=== PATIENT | male | born 1950 | race Caucasian/White ===

== ENCOUNTER 2017-04-15 17:47 | Emergency (ER) | payer MEDICARE ==
--- NOTE | 2017-04-15 17:52 | UC ---
Knee Pain HPI - HPI Summary HPI Summary: 67 YEAR OLD MALE PRESENTS WITH COMPLAINS OF ABRASION ON HIS LEFT KNEE AND ANTERIOR ORTIZ. - History of Current Complaint Stated Complaint: LEFT KNEE PAIN Time Seen by Provider: 04/15/17 17:51 - Allergies/Home Medications Allergies/Adverse Reactions: Allergies Allergy/AdvReac Type Severity Reaction Status Date / Time Clindamycin Allergy Severe Anaphylatic Verified 04/15/17 17:59 Shock Home Medications: Home Medications Gabapentin CAP(*) [Neurontin 300 CAP(*)] 300 mg PO TID 04/15/17 [History Confirmed 04/15/17] PMH/Surg Hx/FS Hx/Imm Hx Previously Healthy: Yes - Surgical History Surgical History: Yes Surgery Procedure, Year, and Place: KNEE SURGERY - Social History Alcohol Use: None Substance Use Type: None Smoking Status (MU): Never Smoked Tobacco - Immunization History Most Recent Tetanus Shot: within the past 6 months. Review of Systems Constitutional: Negative Skin: Other - LEFT KNEE/ORTIZ ABRASION Eyes: Negative ENT: Negative Respiratory: Negative Cardiovascular: Negative Gastrointestinal: Negative Genitourinary: Negative Motor: Negative Neurovascular: Negative Musculoskeletal: Negative Neurological: Negative Psychological: Negative All Other Systems Reviewed And Are Negative: Yes Physical Exam Triage Information Reviewed: Yes Eye Exam: Normal ENT Exam: Normal Dental Exam: Normal Neck exam: Normal Neck: Positive: 1 Respiratory Exam: Normal Cardiovascular Exam: Normal Abdominal Exam: Normal Musculoskeletal Exam: Normal Neurological Exam: Normal Psychological Exam: Normal Skin: Positive: Other - LEFT KNEE/ORTIZ ABRASIONS Knee Pain Course/Dx - Differential Dx/Diagnosis Provider Diagnoses: LEFT KNEE/ORTIZ ABRASIONS. LEFT KNEE/ORTIZ WOUND Discharge - Discharge Plan Condition: Stable Disposition: HOME Prescriptions: DOXYcycline CAP(*) [DOXYcycline 100MG CAP(*)] 100 mg PO BID #20 cap Mupirocin 2% OINT* [Bactroban 2 % Oint*] 1 applic TOPICAL BID #1 tube Patient Education Materials: Knee Pain (ED), Insect Bite or Sting (ED) Referrals: Gilmar Roche [Primary Care Provider] -
[2017-04-15 17:59] VITALS: BP 123/59
== END 2017-04-15 18:20 | disposition home or self-care (01) ==
LOC: UCCORT 17:47
DX: S80.212A Abrasion, left knee, initial encounter (principal); S80.812A Abrasion, left lower leg, initial encounter; X58.XXXA Exposure to other specified factors, initial encounter; Y93.9 Activity, unspecified; Y92.9 Unspecified place or not applicable; Z88.1 Allergy status to other antibiotic agents
CPT/HCPCS: 99212; G0463

== ENCOUNTER 2018-01-09 10:43 | Emergency (ER) | payer MEDICARE ==
[2018-01-09 11:31] VITALS: BP 140/85
--- NOTE | 2018-01-09 13:05 | UC ---
Throat Pain/Nasal Krzysztof HPI - HPI Summary HPI Summary: seen by opthomology and dx with bletheritis--has continued sinus pressure no fevers chills - History of Current Complaint Chief Complaint: UCGeneralIllness Stated Complaint: SINUS/DIZZY Time Seen by Provider: 01/09/18 12:57 Hx Obtained From: Patient Onset/Duration: Gradual Onset, Lasting Days - 5, Still Present Severity: Moderate Cough: None - Allergies/Home Medications Allergies/Adverse Reactions: Allergies Allergy/AdvReac Type Severity Reaction Status Date / Time clindamycin Allergy Severe anaphlactic Verified 01/09/18 11:32 shock Home Medications: Home Medications Gentamicin 0.3% OPHTH.SOLN* 2 drop BOTH EYES QID 01/09/18 [History Confirmed 01/22] PMH/Surg Hx/FS Hx/Imm Hx Previously Healthy: No Cardiovascular History: Hypertension Respiratory History: Asthma GI/ History: Gastroesophageal Reflux - Surgical History Surgical History: Yes Surgery Procedure, Year, and Place: KNEE SURGERY. [facility] - Family History Known Family History: Positive: Cardiac Disease, Hypertension - Social History Occupation: Unemployed, Retired Lives: With Family Alcohol Use: None Substance Use Type: None Smoking Status (MU): Never Smoked Tobacco - Immunization History Most Recent Tetanus Shot: within the past 6 months. Review of Systems Constitutional: Negative Skin: Negative Eyes: Negative ENT: Negative, Sinus Congestion, Sinus Pain/Tenderness Respiratory: Negative Cardiovascular: Negative Gastrointestinal: Negative Genitourinary: Negative Motor: Negative Neurovascular: Negative Musculoskeletal: Negative Neurological: Negative Psychological: Negative Is Patient Immunocompromised?: No All Other Systems Reviewed And Are Negative: Yes Physical Exam Triage Information Reviewed: Yes Appearance: Well-Appearing, No Pain Distress, Obese Vital Signs: Initial Vital Signs Temp 98.7 F 01/09/18 11:25 Pulse 82 01/09/18 11:25 Resp 16 01/09/18 11:25 BP 140/85 01/09/18 11:25 Pulse Ox 96 01/09/18 11:25 Vital Signs Reviewed: Yes Eye Exam: Normal Eyes: Positive: Conjunctiva Clear ENT Exam: Normal ENT: Positive: Normal ENT inspection, Hearing grossly normal, Pharynx normal, Nasal congestion, TMs normal, Sinus tenderness, Uvula midline. Negative: Tonsillar swelling, Tonsillar exudate, Trismus, Muffled voice, Hoarse voice Dental Exam: Normal Neck exam: Normal Neck: Positive: Supple, Nontender, No Lymphadenopathy Respiratory Exam: Normal Respiratory: Positive: Chest non-tender, Lungs clear, Normal breath sounds, No respiratory distress, No accessory muscle use Cardiovascular Exam: Normal Cardiovascular: Positive: RRR, No Murmur, Pulses Normal, Brisk Capillary Refill Musculoskeletal Exam: Normal Musculoskeletal: Positive: Strength Intact, ROM Intact, No Edema Neurological Exam: Normal Neurological: Positive: Alert, Muscle Tone Normal Psychological Exam: Normal Psychological: Positive: Normal Response To Family, Age Appropriate Behavior Skin Exam: Normal Throat Pain/Nasal Course/Dx - Course Assessment/Plan: add flonase, increase fluids plain mucinex and second generation antihistiamine, follow blood pressure with pcp - Differential Dx/Diagnosis Provider Diagnoses: allergic sinusitis Discharge - Sign-Out/Discharge Documenting (check all that apply): Discharge/Admit/Transfer - Discharge Plan Condition: Stable Disposition: HOME Prescriptions: Fluticasone NASAL SPRAY 50MCG* [Flonase NASAL SPRAY 50MCG*] 2 spray BOTH NARES DAILY #1 btl Patient Education Materials: Allergic Rhinitis (ED), Hypertension (ED), How to Use Nasal Newell (ED) Referrals: Gilmar Roche [Primary Care Provider] - 1 Week - Billing Disposition and Condition Condition: STABLE Disposition: HOME
== END 2018-01-09 13:16 | disposition home or self-care (01) ==
LOC: UCCORT 10:43
DX: J30.9 Allergic rhinitis, unspecified (principal); Z88.1 Allergy status to other antibiotic agents
CPT/HCPCS: 99211; G0463

== ENCOUNTER 2018-03-11 15:08 | Emergency (ER) | payer MEDICARE ==
[2018-03-11 15:32] VITALS: BP 127/83
--- NOTE | 2018-03-11 15:53 | ED ---
Upper Extremity Pain - HPI Summary HPI Summary: 68 yr male with the complaint of Left index finger paronychia. Onset of symptoms less than two days ago. Left index finger with redness and some swelling to the paronychial fold. No other complaints. No fever chills, or arm or hand pain. - History of Current Complaint Chief Complaint: SANDRAkin Stated Complaint: L HAND COMPLAINT Time Seen by Provider: 03/11/18 15:40 - Allergies/Home Medications Allergies/Adverse Reactions: Allergies Allergy/AdvReac Type Severity Reaction Status Date / Time clindamycin Allergy Severe anaphlactic Verified 03/11/18 15:32 shock PMH/Surg Hx/FS Hx/Imm Hx Cardiovascular History: Reports: Hx Hypertension Respiratory History: Reports: Hx Chronic Obstructive Pulmonary Disease (COPD) - Surgical History Surgery Procedure, Year, and Place: KNEE SURGERY. [facility] Infectious Disease History: Yes Infectious Disease History: Reports: Hx Shingles Denies: History Other Infectious Disease, Traveled Outside the [place] in Last 30 Days - Family History Known Family History: Positive: Cardiac Disease, Hypertension - Social History Alcohol Use: None Substance Use Type: Reports: None Smoking Status (MU): Never Smoked Tobacco Review of Systems Constitutional: Negative Positive: Other - paronychia left index finger All Other Systems Reviewed And Are Negative: Yes Physical Exam Triage Information Reviewed: Yes Vital Signs On Initial Exam: Initial Vitals Temp Pulse Resp BP Pulse Ox 97.8 F 77 16 127/83 98 03/11/18 15:23 03/11/18 15:23 03/11/18 15:23 03/11/18 15:23 03/11/18 15:23 Vital Signs Reviewed: Yes Appearance: Positive: Well-Appearing, No Pain Distress Head/Face: Positive: Normal Head/Face Inspection Eyes: Positive: EOMI ENT: Positive: Normal ENT inspection Neck: Positive: Nontender Respiratory/Lung Sounds: Positive: Clear to Auscultation, Breath Sounds Present Cardiovascular: Positive: RRR. Negative: Murmur Abdomen Description: Positive: Nontender Musculoskeletal: Positive: Strength/ROM Intact, Other - paronychia left index finger that is early with induration, no real fluctuance. no felon. Neurological: Positive: Sensory/Motor Intact, Alert, Oriented to Person Place, Time, CN Intact II-III Psychiatric: Positive: Normal AVPU Assessment: Alert - Flora Coma Scale Best Eye Response: 4 - Spontaneous Best Motor Response: 6 - Obeys Commands Best Verbal Response: 5 - Oriented Coma Scale Total: 15 Diagnostics - Vital Signs Vital Signs Temp Pulse Resp BP Pulse Ox 03/11/18 15:23 97.8 F 77 16 127/83 98 - Laboratory Lab Statement: Any lab studies that have been ordered have been reviewed, and results considered in the medical decision making process. Course/Dx - Course Course Of Treatment: 68 yr old with paronychia. Will rx with doxycycline, and if this gets worse he will return here or go to ER for I/D - Diagnoses Provider Diagnoses: Paronychia of finger of left hand Discharge - Sign-Out/Discharge Documenting (check all that apply): Discharge/Admit/Transfer - Discharge Plan Condition: Good Disposition: HOME Prescriptions: DOXYcycline CAP(*) [DOXYcycline 100MG CAP(*)] 100 mg PO BID #20 cap Patient Education Materials: Paronychia (ED) Referrals: Sadia MEHTA,Gilmar Sheldon [Primary Care Provider] - 2 Days Additional Instructions: If your finger becomes more swollen, red, painful return here or go to the ER for reevaluation and possible incision and drainage. - Billing Disposition and Condition Condition: GOOD Disposition: Home
== END 2018-03-11 16:00 | disposition home or self-care (01) ==
LOC: UCCORT 15:08
DX: L03.012 Cellulitis of left finger (principal); Z88.1 Allergy status to other antibiotic agents; I10 Essential (primary) hypertension
CPT/HCPCS: 99212; G0463

== ENCOUNTER 2018-08-27 13:36 | Emergency (ER) | payer MEDICARE ==
--- OUTSIDE RECORDS SUMMARY | 2018-08-27 13:45 | XMS REPORT | Continuity of Care Document ---
:1950 External Reference #:[id number] Author Name Bharati Villa NP Address [address] [place] [address] Care Team Providers Name Role Phone Gilmar Mccullough PA Care Team Information Grease Man Unavailable Gilmar Mccullough PA Primary Care Physician Unavailable Payers Type Date Identification Numbers Payment Provider Subscriber Policy Number: [id number] BS [place] Jomar Norman PayID: [id number] [address] [address] [place] [address] Advance Directives Description No Information Available Problems Description No Information Family History Date Family Member(s) Problem(s) Comments Onset: (age 91 Years) Father Unknown : (age 90 Years) Mother due to Natural Causes Social History Type Date Description Comments Sex Unknown Marital Status Occupation concrete mixing truck driver Tobacco Use Start: Unknown Never Smoked Cigarettes ETOH Use Never used alcohol Recreational Drug Use Never Used Drugs Allergies, Adverse Reactions, Alerts Date Description Reaction Status Severity Comments 01/28/2008 Clindamycin HCL Active Medications Medication Date Status Form Strength Qnty SIG Indications Ordering Provider Zaleplon 04/05/ Active Capsules 5mg 1caps 1 by mouth at [place], 2017 bedtime January Gadiel take if 1st M.D. does not work Zaleplon 03/29/ Active Capsules 5mg 1caps 1 by mouth at [facility]2017 bedtime Nancy Rmaesh Valsartan / Active Tablets 80mg 1 by mouth Unknown 0000 every day Escitalopram 0000/ Active Tablets 10mg 1 a day Unknown Oxalate 0000 Allopurinol 0000/ Active Tablets 300mg 1 by mouth Unknown 0000 every day Gabapentin 00/ Active Capsules 300mg 1 by mouth Unknown 0000 three times a day Colchicine / Active Capsules 0.6mg 2 tablets Unknown 0000 intially, then one tabletone hour later Elizabeth Allergy / Active Tablets 60mg 1 tab daily Unknown 0000 d/c the 30 mg Calcium / Active Tablets 500mg 1 twice a day Unknown 0000 Tylenol PM / Active Tablets 500-25mg 1-2 tab by Unknown Extra Strength 0000 mouth every night as needed Voltaren / Active Gel 1% 2 gm apply to Unknown 0000 shoulder four times a day as needed for pain. Utibron / Active Capsules 27.5-15.6 Unknown Neohaler 0000 mcg Proair HFA / Active Aerosol 108(90Bas 2puffs four Unknown 0000 e) times a day mcg/Act as needed for sob Diclofenac / Active Gel 1% please cancel Unknown Sodium 0000 this prescription thank you Simvastatin / Active Tablets 20mg 1 by mouth Unknown 0000 every day Anoro Ellipta / Active Aerosol 62.5-25mc take one puff Unknown 0000 g/Inh once daily. Zaleplon 01/04/ Hx Capsules 10mg 1caps 1 by mouth [place], 2017 - night of [facility], 03/24/ sleep study M.D. 2017 Zaleplon 11/30/ Hx Capsules 5mg 1caps 1 by mouth at [facility], 2017 - bedtime [facility], 01/04/ M.DJoaquín 2018 See Meds On HX / Hx Unknown Sheet - 2017 Vitamin B-12 / Hx Tablets 1000mcg daily Unknown - 2017 Valsartan / Hx Tablets 80mg 1 by mouth Unknown 0000 - every day 2017 Escitalopram / Hx Tablets 10mg 1 by mouth Unknown Oxalate 0000 - every day 2017 Allopurinol / Hx Tablets 300mg 1 by mouth Unknown 0000 - every day 2017 Gabapentin 00/ Hx Capsules 300mg 1 by mouth Unknown 0000 - three times a 2018 Colchicine / Hx Capsules 0.6mg prn Unknown 0000 - 2017 Famotidine // Hx Tablets 20mg 1 by mouth Unknown 0000 - bid 2017 Multivitamins 00/00/ Hx Capsules 1 a day Unknown 0000 - 2017 Elizabeth-D 24 / Hx Tablets 180-240mg 1 by mouth Unknown Hour Allergy & 0000 - ER 24HR every day Congestion 2017 Calcium-Vitamin / Hx Tablets 600-200mg 1 by mouth Unknown D 0000 - -Unit every day 2017 Gas-X / Hx Chewtabs 80mg as needed Unknown 0000 - 2017 Tylenol / Hx Capsules 325mg 2 tab every 6 Unknown 0000 - hours as needed 2018 Voltaren / Hx Gel 1% 2-4 grams to Unknown 0000 - affected 03/24/ joint three 2018 times a day as needed Immunizations Description No Information Available Vital Signs Date Vital Result Comment 08/17/2018 10:56am Weight 281.00 lb Height 70 inches 5'10" BMI (Body Mass Index) 40.3 kg/m2 BP Systolic 130 mmHg BP Diastolic 80 mmHg Heart Rate 64 /min O2 % BldC Oximetry 94 % Body Temperature 97.6 F Boston Score 4 Pain Level 0 06/02/2018 9:22am Weight 289.00 lb Height 70 inches 5'10" BMI (Body Mass Index) 41.5 kg/m2 BP Systolic 117 mmHg BP Diastolic 78 mmHg Heart Rate 72 /min O2 % BldC Oximetry 97 % Body Temperature 96.7 F Boston Score 4 Pain Level 0 03/25/2018 2:47pm Weight 303.00 lb Height 70 inches 5'10" BMI (Body Mass Index) 43.5 kg/m2 BP Systolic 135 mmHg BP Diastolic 81 mmHg Heart Rate 67 /min O2 % BldC Oximetry 96 % Body Temperature 96.3 F Boston Score 6 Pain Level 0 11/12/2017 4:00pm Weight 344.12 lb Height 70 inches 5'10" BMI (Body Mass Index) 49.4 kg/m2 BP Systolic 109 mmHg BP Diastolic 71 mmHg Heart Rate 110 /min O2 % BldC Oximetry 96 % 2L 02 via nasal canula Body Temperature 96.8 F Boston Score 9 Pain Level 0 2010 1:25pm Weight 364.00 lb Height 70 inches 5'10" BMI (Body Mass Index) 52.2 kg/m2 01/28/2008 3:09pm Weight 364.25 lb BP Systolic 157 mmHg BP Diastolic 94 mmHg Heart Rate 78 /min O2 % BldC Oximetry 95 % Results Description No Information Available Procedures Date Code Description Status 04/09/2018 32518 Sleep Stage 4 Or More Cpap Titra Completed 01/10/2018 29873 Sleep Stage 4 Or More Cpap Titra Completed 03/01/2010 97213 Sleep Stage 4 Or More Cpap Titra Completed 01/11/2010 26235 Sleep Staging 4Or More Para Completed 01/28/2008 08239 Fiberoptic Laryngoscopy,Diag. Completed Encounters Type Date Location Provider Dx Diagnosis Office Visit 08/17/2018 Main Office Zulay [id number] Obstructive sleep 11:00a [employer] apnea (adult) (pediatric) Office Visit 06/02/2018 Main Office Zulay [id number] Obstructive sleep 9:30a [employer] RE[employer]UITER apnea (adult) (pediatric) Office Visit 03/25/2018 Main Office Zulay [id number] Obstructive sleep 2:45p [employer] RE[employer] apnea (adult) (pediatric) Z71.82 Exercise counseling Z71.3 Dietary counseling and surveillance Office Visit 11/12/2017 3:30p Main Office Bharati Ron G47.33 Obstructive sleep STACIA Villa apnea (adult) (pediatric) R09.02 Hypoxemia R06.83 Snoring E66.01 Morbid (severe) obesity due to excess calories Office Visit 2010 1:15p Main Office Gadiel Trujillo, 327.23 Obstructive Sleep M.D. Apnea Adult & Pediatric 470 Deviated Nasal Septum 780.54 Hypersomnia Unspecified Office Visit 01/28/2008 3:00p Main Office Gadiel Trujillo, 327.23 Obstructive Sleep M.D. Apnea Adult & Pediatric 470 Deviated Nasal Septum 780.54 Hypersomnia Unspecified Plan of Treatment 11/12/2017 - Bharati Villa [id number] Obstructive sleep apnea (adult) ( pediatric)R09.02 FjpqxycouN42.83 YclstwmT00.01 Morbid (severe) obesity due to excess caloriesNew Orders:PSG - Sleep Study, Ordered: 11/12/17
--- OUTSIDE RECORDS SUMMARY | 2018-08-27 13:45 | XMS REPORT | Continuity of Care Document ---
:1950 External Reference #:[id number] Author Name Emily Lackey Care Team Providers Name Role Phone Gilmar Mccullough PA Care Team Information Help Desk Administrator Unavailable Gilmar Mccullough PA Primary Care Physician Unavailable Payers Type Date Identification Numbers Payment Provider Subscriber Policy Number: [id number] BS MARGARITAY Jomar Norman PayID: [id number] [address] [address] [place] [id number] Advance Directives Description No Information Available Problems Description No Information Family History Date Family Member(s) Problem(s) Comments Onset: (age 91 Years) Father Unknown : (age 90 Years) Mother due to Natural Causes Social History Type Date Description Comments Sex Unknown Marital Status Occupation concrete mixer truck driver Tobacco Use Start: Unknown Never Smoked Cigarettes ETOH Use Never used alcohol Recreational Drug Use Never Used Drugs Allergies, Adverse Reactions, Alerts Date Description Reaction Status Severity Comments 01/28/2008 Clindamycin HCL Active Medications Medication Date Status Form Strength Qnty SIG Indications Ordering Provider Zaleplon 04/05/ Active Capsules 5mg 1caps 1 by mouth at [place], 2017 bedtime January analilia Ramesh if 1st M.D. does not work Zaleplon 03/29/ Active Capsules 5mg 1caps 1 by mouth at [place]2017 bedtime Nancy Ramesh Valsartan / Active Tablets 80mg 1 by mouth Unknown 0000 every day Escitalopram / Active Tablets 10mg 1 a day Unknown Oxalate 0000 Allopurinol / Active Tablets 300mg 1 by mouth Unknown 0000 every day Gabapentin / Active Capsules 300mg 1 by mouth Unknown 0000 three times a day Colchicine / Active Capsules 0.6mg 2 tablets Unknown 0000 intially, then one tabletone hour later Elizabeth Allergy / Active Tablets 60mg 1 tab daily Unknown 0000 d/c the 30 mg Calcium 00/00/ Active Tablets 500mg 1 twice a day [...] by mouth [place], 2017 - night of [facility], 03/24/ sleep study M.D. 2017 Zaleplon 11/30/ Hx Capsules 5mg 1caps 1 by mouth at [facility], 2017 - bedtime [facility], 01/04/ M.D. 2018 See Meds On HX / Hx Unknown Sheet 0000 - 2017 Vitamin B-12 / Hx Tablets 1000mcg daily Unknown 0000 - 2017 Valsartan / Hx Tablets 80mg 1 by mouth Unknown 0000 - every day 2017 Escitalopram / Hx Tablets 10mg 1 by mouth Unknown Oxalate 0000 - every day 2017 Allopurinol // Hx Tablets 300mg 1 by mouth Unknown 0000 - every day 2017 Gabapentin 00/ Hx Capsules 300mg 1 by mouth Unknown 0000 - three times a 2018 Colchicine / Hx Capsules 0.6mg prn Unknown 0000 - 2017 Famotidine / Hx Tablets 20mg 1 by mouth Unknown [...] every 6 Unknown 0000 - hours as 2018 Voltaren / Hx Gel 1% 2-4 grams to Unknown 0000 - affected joint three 2018 times a day as needed Immunizations Description No Information Available Vital Signs Date Vital Result Comment 08/17/2018 10:56am Weight 281.00 lb Height 70 inches 5'10" BMI (Body Mass Index) 40.3 kg/m2 BP Systolic 130 mmHg BP Diastolic 80 mmHg Heart Rate 64 /min O2 % BldC Oximetry 94 % Body Temperature 97.6 F Malone Score 4 Pain Level 0 06/02/2018 9:22am Weight 289.00 lb Height 70 inches 5'10" BMI (Body Mass Index) 41.5 kg/m2 BP Systolic 117 mmHg BP Diastolic 78 mmHg Heart Rate 72 /min O2 % BldC Oximetry 97 % Body Temperature 96.7 F Malone Score 4 Pain Level 0 03/25/2018 2:47pm Weight 303.00 lb Height 70 inches 5'10" BMI (Body Mass Index) 43.5 kg/m2 BP Systolic 135 mmHg BP Diastolic 81 mmHg Heart Rate 67 /min O2 % BldC Oximetry 96 % Body Temperature 96.3 F Malone Score 6 Pain Level 0 11/12/2017 4:00pm Weight 344.12 lb Height 70 inches 5'10" BMI (Body Mass Index) 49.4 kg/m2 BP Systolic 109 mmHg BP Diastolic 71 mmHg Heart Rate 110 /min O2 % BldC Oximetry 96 % 2L 02 via nasal canula Body Temperature 96.8 F Malone Score 9 Pain Level 0 2010 1:25pm Weight 364.00 lb Height 70 inches 5'10" BMI (Body Mass Index) 52.2 kg/m2 01/28/2008 3:09pm Weight 364.25 lb BP Systolic 157 mmHg BP Diastolic 94 mmHg Heart Rate 78 /min O2 % BldC Oximetry 95 % Results Description No Information Available Procedures Date Code Description Status 04/09/2018 37435 Sleep Stage 4 Or More Cpap Titra Completed 01/10/2018 54520 Sleep Stage 4 Or More Cpap Titra Completed 03/01/2010 04634 Sleep Stage 4 Or More Cpap Titra Completed 01/11/2010 67029 Sleep Staging 4Or More Para Completed 01/28/2008 87640 Fiberoptic Laryngoscopy,Diag. Completed Encounters Type Date Location Provider Dx Diagnosis Office Visit 06/02/2018 Main Office Bharati Villa [id number] Obstructive sleep 9:30a [employer]IST apnea (adult) (pediatric) Office Visit 03/25/2018 Main Office Bharati Villa G47.33 Obstructive sleep 2:45p [employer] INTER[employer]IST apnea (adult) (pediatric) Z71.82 Exercise counseling Z71.3 [...] [id number] Obstructive sleep apnea (adult) ( pediatric)R09.02 GwemeoxuvU92.83 XzgawhyL50.01 Morbid (severe) obesity due to excess caloriesNew Orders:PSG - Sleep Study, Ordered: 11/12/17
[2018-08-27 14:30] VITALS: BP 132/81
[2018-08-27] MEDS ORDERED: Fluorescein Sodium TOPICAL* 1 MG TEST STRIP OPHTHALMIC ONE (14:41)
--- NOTE | 2018-08-27 14:56 | UC ---
Throat Pain/Nasal Krzysztof HPI - HPI Summary HPI Summary: The patient is a 68-year-old male that presents here with left sided sinus pain and pressure 2 days. He started taking Elizabeth-D. He denies any significant nasal congestion or postnasal drip. He has no cough. He states he has had shingles twice in the past. - History of Current Complaint Chief Complaint: UCGeneralIllness Stated Complaint: SINUS/LEFT EYE COMPLAINT Time Seen by Provider: 08/27/18 14:34 Hx Obtained From: Patient Onset/Duration: Gradual Onset, Lasting Days Severity: Mild Pain Intensity: 3 Pain Scale Used: 0-10 Numeric Cough: None Associated Signs & Symptoms: Positive: Sinus Discomfort Related History: Seasonal Allergies - Epiglottits Risk Factors Epiglottis Risk Factors: Negative - Allergies/Home Medications Allergies/Adverse Reactions: Allergies Allergy/AdvReac Type Severity Reaction Status Date / Time clindamycin Allergy Severe anaphlactic Verified 08/27/18 14:29 shock Home Medications: Home Medications Blood Pressure Med 08/27/18 [History] PMH/Surg Hx/FS Hx/Imm Hx Previously Healthy: Yes Endocrine History: Dyslipidemia Cardiovascular History: Hypertension - Surgical History Surgical History: Yes Surgery Procedure, Year, and Place: KNEE SURGERY. [facility]. Gastric bypass - Family History Known Family History: Positive: Cardiac Disease, Hypertension - Social History Alcohol Use: None Substance Use Type: None Smoking Status (MU): Never Smoked Tobacco - Immunization History Most Recent Tetanus Shot: within the past 6 months. Review of Systems All Other Systems Reviewed And Are Negative: Yes Constitutional: Positive: Negative Skin: Positive: Negative Eyes: Positive: Negative ENT: Positive: Sinus Pain/Tenderness Respiratory: Positive: Negative Cardiovascular: Positive: Negative Gastrointestinal: Positive: Negative Genitourinary: Positive: Negative Motor: Positive: Negative Neurovascular: Positive: Negative Musculoskeletal: Positive: Negative Neurological: Positive: Negative Psychological: Positive: Negative Physical Exam Triage Information Reviewed: Yes Appearance: Well-Appearing, No Pain Distress, Well-Nourished Vital Signs: Initial Vital Signs Temp 97.0 F 08/27/18 14:26 Pulse 71 08/27/18 14:26 Resp 18 08/27/18 14:26 BP 132/81 08/27/18 14:26 Pulse Ox 99 08/27/18 14:26 Vital Signs Reviewed: Yes Eyes: Positive: Conjunctiva Clear, Other: - left eye- flourescein staining negative ENT: Positive: Hearing grossly normal, Nasal congestion, TMs normal. Negative: Nasal drainage, Tonsillar swelling, Tonsillar exudate, Trismus, Muffled voice, Hoarse voice, Dental tenderness, Sinus tenderness - mild left max Respiratory: Positive: Lungs clear, Normal breath sounds, No respiratory distress, No accessory muscle use Cardiovascular: Positive: RRR, No Murmur Musculoskeletal: Positive: Other: - limited ROM both knees Neurological: Positive: Alert Psychological Exam: Normal Skin Exam: Normal Throat Pain/Nasal Course/Dx - Differential Dx/Diagnosis Provider Diagnosis: Sinus congestion Discharge - Sign-Out/Discharge Documenting (check all that apply): Patient Departure All imaging exams completed and their final reports reviewed: No Studies - Discharge Plan Condition: Stable Disposition: HOME Prescriptions: Fluticasone NASAL SPRAY 50MCG* [Flonase NASAL SPRAY 50MCG*] 2 spray BOTH NARES BID #1 btl Patient Education Materials: Rhinosinusitis (ED) Referrals: Sadia MEHTA,Gilmar Sheldon [Primary Care Provider] - 5 Days (if not better) Additional Instructions: recheck CARLOZ if you develop a rash in the region you are experiencing the pain - Billing Disposition and Condition Condition: STABLE Disposition: Home
== END 2018-08-27 15:10 | disposition home or self-care (01) ==
LOC: UCCORT 13:36
DX: J34.89 Other specified disorders of nose and nasal sinuses (principal); Z88.1 Allergy status to other antibiotic agents; I10 Essential (primary) hypertension
CPT/HCPCS: 99212; A9270-GY; G0463

== ENCOUNTER 2018-08-30 13:33 | Emergency (ER) | payer MEDICARE ==
[2018-08-30 15:10] VITALS: BP 119/80
--- NOTE | 2018-08-30 15:31 | UC ---
Ear Complaint HPI - HPI Summary HPI Summary: Patient seen here 3 days ago with sinus congestion and treated with nasal steroid. States those symptoms are improving but comes in today complaining of left ear pain that started yesterday. No cough, fever, nausea/vomiting. - History of Current Complaint Chief Complaint: UCEar Stated Complaint: LEFT EAR COMPLAINT Time Seen by Provider: 08/30/18 15:19 Hx Obtained From: Patient Onset/Duration: Gradual Onset, Lasting Days Severity Initially: Moderate Severity Currently: Moderate Pain Intensity: 6 Pain Scale Used: 0-10 Numeric Aggravating Factors: Nothing Alleviating Factors: Nothing Associated Signs/Symptoms: Positive: URI Symptoms. Negative: Discharge, Hearing Loss - Allergies/Home Medications Allergies/Adverse Reactions: Allergies Allergy/AdvReac Type Severity Reaction Status Date / Time clindamycin Allergy Severe anaphlactic Verified 08/30/18 15:03 shock PMH/Surg Hx/FS Hx/Imm Hx Endocrine History: Dyslipidemia Cardiovascular History: Hypertension Respiratory History: COPD - Surgical History Surgical History: Yes Surgery Procedure, Year, and Place: KNEE SURGERY. [facility]. Gastric bypass - Family History Known Family History: Positive: Cardiac Disease, Hypertension - Social History Alcohol Use: None Substance Use Type: None Smoking Status (MU): Never Smoked Tobacco - Immunization History Most Recent Tetanus Shot: within the past 6 months. Review of Systems All Other Systems Reviewed And Are Negative: Yes Constitutional: Positive: Negative ENT: Positive: Ear Ache, Sinus Congestion Respiratory: Positive: Negative Cardiovascular: Positive: Negative Gastrointestinal: Positive: Negative Neurological: Positive: Negative Physical Exam Triage Information Reviewed: Yes Appearance: Well-Appearing, No Pain Distress, Well-Nourished Vital Signs: Initial Vital Signs Temp 97.5 F 08/30/18 15:04 Pulse 69 08/30/18 15:04 Resp 18 08/30/18 15:04 BP 119/80 08/30/18 15:04 Pulse Ox 96 08/30/18 15:04 Vital Signs Reviewed: Yes Eyes: Positive: Conjunctiva Clear ENT: Positive: Hearing grossly normal, Pharynx normal, TMs normal - RIGHT EAC OCCLUDED WITH CERUMEN. AFTER SUCCESSFUL IRRIGATION BY RN TM SEEN TO BE NORMAL Neck: Positive: Supple, Nontender, No Lymphadenopathy Respiratory Exam: Normal Cardiovascular Exam: Normal Abdomen Description: Positive: Soft Musculoskeletal: Positive: No Edema Neurological: Positive: Alert Psychological: Positive: Age Appropriate Behavior Skin: Negative: Rashes Ear Complaint Course/Dx - Course Course Of Treatment: NO SIGN OF LEFT EAR INFECTION ON EXAM TODAY. RIGHT EAR CERUMEN IMPACTION SUCCESSFULLY IRRIGATED BY RN. PATIENT STATES HIS SINUS CONGESTION IS IMPROVING WITH THE USE OF THE NASAL STEROID. ADVISED CONSERVATIVE MANAGEMENT. TYLENOL FOR DISCOMFORT. REST, HYDRATION. HIS SYMPTOMS SHOULD CONTINUE TO IMPROVE OVER THE NEXT FEW DAYS. FOLLOW-UP WITH PCP IF NOT DOING WELL. - Differential Dx/Diagnosis Provider Diagnosis: Ear pain, left, Impacted cerumen of right ear Discharge - Sign-Out/Discharge Documenting (check all that apply): Patient Departure All imaging exams completed and their final reports reviewed: No Studies - Discharge Plan Condition: Stable Disposition: HOME Patient Education Materials: Earache (ED), Cerumen Impaction (ED) Referrals: Gilmar Roche [Primary Care Provider] - If Needed Additional Instructions: NO EVIDENCE OF EAR INFECTION ON EXAM TODAY. WE DID CLEAN OUT YOUR RIGHT EAR WHICH WAS OBSTRUCTED WITH CERUMEN. TAKE TYLENOL NEEDED FOR YOUR DISCOMFORT. STAY WELL HYDRATED. YOUR SYMPTOMS SHOULD IMPROVE OVER THE NEXT FEW DAYS. SEEK FOLLOW-UP IF YOU HAVE WORSENING PAIN, FEVER, DRAINAGE FROM THE EAR OR ANY OTHER CONCERNING SYMPTOMS. - Billing Disposition and Condition Condition: STABLE Disposition: Home
== END 2018-08-30 16:13 | disposition home or self-care (01) ==
LOC: UCCORT 13:33
DX: H92.02 Otalgia, left ear (principal); H61.21 Impacted cerumen, right ear; Z88.1 Allergy status to other antibiotic agents; I10 Essential (primary) hypertension
CPT/HCPCS: 99212; G0463

== ENCOUNTER 2019-08-29 10:06 | Emergency (ER) | payer MEDICARE, OTHER ==
[2019-08-29 10:36] VITALS: BP 113/64
--- NOTE | 2019-08-29 10:56 | ED ---
Upper Extremity Pain - HPI Summary HPI Summary: 69 yr old male with the complaint of right shoulder pain. Onset of pain on . 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 He was seen at [facility], and evaluated. He was given a work excuse for a couple of days. The patient has pain that is worse with lifting the right arm over his head. He also sustained and abrasion to the right forearm. He states the dressing was last changed yesterday. His last tetanus shot was in 2018. - History of Current Complaint Chief Complaint: UCUpperExtremity Stated Complaint: WC-RIGHT SHOULDER INJURY Time Seen by Provider: 08/29/19 10:28 - Allergies/Home Medications Allergies/Adverse Reactions: Allergies Allergy/AdvReac Type Severity Reaction Status Date / Time clindamycin Allergy Severe anaphlactic Verified 08/29/19 10:36 shock Home Medications: Home Medications Calcium Carb, Citrate/Vit D3 [Calcium+D3 Gradual Releas] 1 tab PO DAILY [History Confirmed 08/29/19] Famotidine [Pepcid] 20 mg PO BID 08/29/19 [History Confirmed 08/29/19] Fexofenadine/Pseudoephedrine [Elizabeth-D 24 Hour Tablet] 1 each PO DAILY [History Confirmed 08/29/19] Losartan Potassium 25 mg PO DAILY 08/29/19 [History Confirmed 08/29/19] Multivitamin [Multivitamins] 1 cap PO DAILY 08/29/19 [History Confirmed 08/29/19 ] PMH/Surg Hx/FS Hx/Imm Hx Cardiovascular History: Reports: Hx Hypertension Respiratory History: Reports: Hx Chronic Obstructive Pulmonary Disease (COPD) - Surgical History Surgery Procedure, Year, and Place: KNEE SURGERY. [facility]. Gastric bypass Infectious Disease History: No Infectious Disease History: Reports: Hx Shingles Denies: History Other Infectious Disease, Traveled Outside the [place] in Last 30 Days - Family History Known Family History: Positive: Cardiac Disease, Hypertension - Social History Alcohol Use: None Substance Use Type: Reports: None Smoking Status (MU): Never Smoked Tobacco Review of Systems Constitutional: Negative Positive: Other - right shoulder pain Positive: Other - abrasion right forearm. All Other Systems Reviewed And Are Negative: Yes Physical Exam Triage Information Reviewed: Yes Vital Signs On Initial Exam: Initial Vitals Temp Pulse Resp BP Pulse Ox 97.2 F 65 16 113/64 98 08/29/19 10:29 08/29/19 10:29 08/29/19 10:29 08/29/19 10:29 08/29/19 10:29 Vital Signs Reviewed: Yes Appearance: Positive: Well-Appearing, No Pain Distress Skin: Positive: Other - abrasion right forearm. Eyes: Positive: EOMI ENT: Positive: Normal ENT inspection Neck: Positive: Supple Respiratory/Lung Sounds: Positive: Clear to Auscultation, Breath Sounds Present Cardiovascular: Positive: RRR, Pulses are Symmetrical in both Upper and Lower Extremities Abdomen Description: Negative: Distended Musculoskeletal: Positive: Other - right shoulder tender over the right proximal humerus. NO deformity, no bruise no swelling. Neurological: Positive: Sensory/Motor Intact, Alert, Oriented to Person Place, Time, CN Intact II-III Psychiatric: Positive: Normal Diagnostics - Vital Signs Vital Signs Temp Pulse Resp BP Pulse Ox 08/29/19 10:29 97.2 F 65 16 113/64 98 - Laboratory Lab Statement: Any lab studies that have been ordered have been reviewed, and results considered in the medical decision making process. - Radiology right shoulder Radiology Interpretation Completed By: Radiologist - right ac joint arthritis Course/Dx - Course Course Of Treatment: 69 yr old with contusion to the shoulder and ac joint arthritis. He has an appointment with Ortho this week. Will give a note for work until Thursday per his request. - Diagnoses Provider Diagnoses: Contusion of right shoulder Discharge ED - Sign-Out/Discharge Documenting (check all that apply): Patient Departure All imaging exams completed and their final reports reviewed: No Studies - Discharge Plan Condition: Good Disposition: HOME Patient Education Materials: Contusion in Adults (ED), Abrasion (ED) Referrals: Gilmar Mccullough PA [Primary Care Provider] - 2 Days - Billing Disposition and Condition Condition: GOOD Disposition: Home
== END 2019-08-29 11:50 | disposition home or self-care (01) ==
LOC: UCCORT 10:06
DX: S40.011A Contusion of right shoulder, initial encounter (principal); S50.811A Abrasion of right forearm, initial encounter; I10 Essential (primary) hypertension; J44.9 Chronic obstructive pulmonary disease, unspecified; Z88.1 Allergy status to other antibiotic agents; W18.39XA Other fall on same level, initial encounter; Y92.9 Unspecified place or not applicable; Y99.0 Civilian activity done for income or pay; Z79.899 Other long term (current) drug therapy
CPT/HCPCS: 99211; G0463

== ENCOUNTER 2023-11-27 06:44 | Observation (INO) ==
[2023-11-27] MEDS ORDERED: Tranexamic Acid 1 GM/100ML BAG 2,000 MG/200 ML BAG IV ONE (07:20)
[2023-11-27] MEDS ORDERED: ceFAZolin *3* GM in NS PREMIX 3 GM/100 ML BAG IV ONE (07:20)
[2023-11-27] MEDS ORDERED: Bupivacaine 0.5% 50 ML MDV VIAL ONE (07:28)
[2023-11-27 07:29] LABS: Rapid COVID-19 Molecular Undetected (Undetected)
[2023-11-27] MEDS ORDERED: ROPIVACAINE 5 MG/ML 30 ML BTL (0.5%) ONE ×2 (07:41→08:12)
[2023-11-27] MEDS ORDERED: fentaNYL 100 mcg/2 ml 50 MCG/ML VIAL ONE (08:09)
[2023-11-27] MEDS ORDERED: Midazolam 2 mg/2 ml VIAL 1 mg/ml 2 ml VIAL (2 mg) ONE ×2 (08:09→09:00)
[2023-11-27] MEDS ORDERED: Lidocaine 2% PF 5 ML VIAL ONE (09:13)
[2023-11-27] MEDS ORDERED: Glycopyrrolate IV 0.2 MG/ML 1 ML VIAL ONE (09:28)
[2023-11-27] MEDS ORDERED: KETAMINE HCL 10 MG/ML 20 ml VIAL (200 MG) ONE (09:28)
[2023-11-27] MEDS ORDERED: HYDROmorphone 1 MG/1 ML SYRINGE IV PRN (09:42)
[2023-11-27] MEDS ORDERED: Naloxone 0.4 mg VIAL 0.4 mg/ml 1 ml VIAL IV PRN (09:42)
[2023-11-27] MEDS ORDERED: Magnesium Hydroxide LIQ 30 ML UDC PO PRN (10:31)
[2023-11-27] MEDS ORDERED: Lactulose 30 ml UDC PO PRN (10:31)
[2023-11-27] MEDS ORDERED: Phenylephrine IV 10 MG/ML 1 ml VIAL ONE (10:57)
[2023-11-27] MEDS ORDERED: Propofol 10 MG/ML 20 ML BTL ONE (10:59)
[2023-11-27] MEDS ORDERED: Bupivacaine-MPF SPINAL 7.5 MG/ML - 2ML AMP ONE (12:31)
[2023-11-27] MEDS: Buffered Lidocaine 1% SYRIN 1 ml INTRADERM ONE (14:39)
[2023-11-27] MEDS: Lactated Ringers 1000 ml BAG 1,000 ML IV SCH ×2 (14:49→14:53)
[2023-11-27] MEDS: ceFAZolin 1 GM ADVAN 1 GM in NS 0.9% 50 ML 50 ML IVPB SCH (17:13)
[2023-11-27] MEDS: Scopolamine 1 mg/72hr PATCH TRANSDERM PRN (20:39)
[2023-11-27] MEDS: Morphine 2 MG/ML SYRINGE IV PRN (20:40)
[2023-11-27] MEDS: Magnesium Hydroxide LIQ 30 ML UDC PO SCH (20:46)
[2023-11-28 06:18] LABS: Hematocrit 36.9 % (38-53); Hemoglobin 12.6 g/dL (13.2-16.3); Mean Platelet Volume 9.2 fL (7.5-11.2); Platelet Count 165 10^3/uL (150-450)
[2023-11-28 06:36] LABS: Creatinine, Serum 0.53 mg/dL (0.67-1.17); Potassium 4.2 mmol/L (3.5-5.0); eGFR CKD-EPI 105.8 (>60)
[2023-11-28] MEDS: FLUTICAS/UMECLI/VILANT 200-62.5-25 MDI (NF) INH SCH (08:03)
[2023-11-28] MEDS: Vitamin THERAPEUTIC TAB PO SCH (08:27)
[2023-11-28 14:25] VITALS: BP 100/64
== END 2023-11-28 15:31 | disposition home or self-care (01) ==
LOC: SSU 06:44 → OR 06:44 → EDSTATUS 12:45
PROVIDERS: ADMIT Orthopaedic Surgery Adult Reconstructive Orthopaedic Surgery; ATTEND Orthopaedic Surgery Adult Reconstructive Orthopaedic Surgery

== ENCOUNTER 2024-06-21 08:42 | Observation (INO) ==
[2024-06-21] MEDS ORDERED: Midazolam 2 mg/2 ml VIAL 1 mg/ml 2 ml VIAL (2 mg) ONE (08:56)
[2024-06-21] MEDS ORDERED: fentaNYL 100 mcg/2 ml 50 MCG/ML VIAL ONE ×2 (08:56→13:15)
[2024-06-21] MEDS ORDERED: Lidocaine 2% PF 5 ML VIAL ONE ×2 (08:56→13:28)
[2024-06-21 09:43] LABS: Rapid COVID-19 Molecular Undetected (Undetected)
[2024-06-21] MEDS: Buffered Lidocaine 1% SYRIN 1 ml INTRADERM ONE (09:45)
[2024-06-21] MEDS: Lactated Ringers 1000 ml BAG 1,000 ML IV SCH ×2 (09:45→15:04)
[2024-06-21] MEDS ORDERED: Dexamethasone IV 4 MG/ML VIAL 1 ml VIAL ONE (09:49)
[2024-06-21] MEDS ORDERED: ceFAZolin 1 GM in Dextrose 1 GM/50 ML BAG ONE (09:49)
[2024-06-21] MEDS ORDERED: Tranexamic Acid 1 GM/100ML BAG 2,000 MG/200 ML BAG IV ONE (09:49)
[2024-06-21] MEDS ORDERED: ceFAZolin 2 GM PREMIX 2 GM/50 ML BAG ONE (09:49)
[2024-06-21] MEDS: Dexamethasone IV 4 MG/ML VIAL 1 ml VIAL IV SLOW PU ONE (10:02)
[2024-06-21] MEDS: Famotidine IV 10 MG/ML 2 ml VIAL (20 mg) IV ONE (10:03)
[2024-06-21] MEDS ORDERED: Rocuronium 50 mg VIAL 10 mg/ml 5 ml VIAL (50 mg) ONE ×2 (10:09→12:03)
[2024-06-21] MEDS ORDERED: fentaNYL 100 mcg/2 ml 50 MCG/ML VIAL IV PRN (10:13)
[2024-06-21] MEDS ORDERED: Naloxone 0.4 mg VIAL 0.4 mg/ml 1 ml VIAL IV PRN (10:13)
[2024-06-21] MEDS ORDERED: Morphine 4 MG/ML VIAL (1 ml) IV PRN (10:13)
[2024-06-21] MEDS ORDERED: Lactulose 30 ml UDC PO PRN (11:39)
[2024-06-21] MEDS ORDERED: Magnesium Hydroxide LIQ 30 ML UDC PO PRN (11:39)
[2024-06-21] MEDS ORDERED: Calcium Carb (TUMS) 500 mg CHEW TAB PO PRN (11:39)
[2024-06-21] MEDS ORDERED: Ondansetron 4 mg VIAL 2 MG/ML 2 ml VIAL IV PRN (11:39)
[2024-06-21] MEDS ORDERED: Ondansetron ODT 4 mg TAB 4 MG TAB PO PRN (11:39)
[2024-06-21] MEDS ORDERED: Ondansetron 4 mg VIAL 2 MG/ML 2 ml VIAL ONE (12:15)
[2024-06-21] MEDS: Morphine 2 MG/ML SYRINGE IV PRN (14:55)
[2024-06-21] MEDS ORDERED: Albuterol HFA INHALER 8 gm MDI INH PRN (16:32)
[2024-06-21] MEDS: Magnesium Hydroxide LIQ 30 ML UDC PO SCH (20:00)
[2024-06-21] MEDS: ceFAZolin 2 GM PREMIX 2 GM/50 ML BAG IV SCH (20:04)
[2024-06-22 06:06] LABS: Hematocrit 35.7 % (38-53); Hemoglobin 12.2 g/dL (13.2-16.3); Mean Platelet Volume 9.2 fL (7.5-11.2); Platelet Count 183 10^3/uL (150-450)
[2024-06-22 06:24] LABS: Calcium 8.8 mg/dL (8.6-10.3); Creatinine, Serum 0.63 mg/dL (0.67-1.17); eGFR CKD-EPI 99.8 (>60)
[2024-06-22] MEDS: Multivitamins/Minerals TAB PO SCH (08:25)
[2024-06-22] MEDS ORDERED: Vitamin THERAPEUTIC TAB PO SCH (09:00)
[2024-06-22 09:24] VITALS: BP 131/68
== END 2024-06-22 13:20 | disposition home or self-care (01) ==
LOC: SSU 08:42 → OR 08:42
PROVIDERS: ADMIT Orthopaedic Surgery Adult Reconstructive Orthopaedic Surgery; ATTEND Orthopaedic Surgery Adult Reconstructive Orthopaedic Surgery

== ENCOUNTER 2024-06-30 14:55 | Observation (INO) ==
[2024-06-30 16:58] LABS: Hemoglobin 11.9 g/dL (13.2-16.3); Mean Corpuscular Hemoglobin 32.5 pg (27-33); Mean Corpuscular Hgb Conc 34.1 g/dL (31-36); Mean Corpuscular Volume 95.4 fL (80-97); Mean Platelet Volume 8.3 fL (7.5-11.2); Platelet Count 330 10^3/uL (150-450); Red Blood Count 3.67 10^6/uL (4.06-5.63); Red Cell Distribution Width 13.5 % (12-17)
[2024-06-30 17:50] LABS: Anion Gap 6 mmol/L (2-16); Blood Urea Nitrogen 9 mg/dL (6-24); CO2 Carbon Dioxide 32 mmol/L (22-32); Calcium 8.9 mg/dL (8.6-10.3); Chloride 97 mmol/L (101-111); Creatinine, Serum 0.49 mg/dL (0.67-1.17); Glucose 93 mg/dL (70-100); Sodium 135 mmol/L (135-145); eGFR CKD-EPI 107.7 (>60)
[2024-06-30 17:52] LABS: ABS Basophils 0.1 10^3/uL (0.0-0.1); ABS Eosinophils 0.3 10^3/uL (0.0-0.5); ABS Lymphocytes 1.6 10^3/uL (1.0-4.8); ABS Monocytes 0.7 10^3/uL (0.0-1.1); ABS Neutrophils 6.3 10^3/uL (1.5-7.6); Lymphocyte % 18.2 %; RBC Morphology Normal (Normal)
[2024-06-30 20:17] LABS: Urine Appearance Clear; Urine Bilirubin Negative (Negative); Urine Blood Negative (Negative); Urine Color Light-Yellow; Urine Glucose Negative (Negative); Urine Ketones Negative (Negative); Urine Nitrite Negative (Negative); Urine Protein Negative (Negative); Urine Specific Gravity 1.007 (1.002-1.030); Urine Urobilinogen Negative (Negative)
[2024-06-30] MEDS ORDERED: Vancomycin 2,000 MG in NS 0.9% 250 ml 250 ML IVPB SCH (21:00)
[2024-06-30] MEDS: Cefepime 2 GM in Dextrose 2 GM/50 ML BAG IV ONE (21:13)
[2024-06-30] MEDS ORDERED: Albuterol HFA INHALER 8 gm MDI INH PRN (22:05)
[2024-06-30] MEDS: Vancomycin 2,000 MG in NS 0.9% 500 ml BAG 500 ML IVPB ONE (22:33)
[2024-07-01 00:24] LABS: C Reactive Protein 32.51 mg/L (<8.01)
[2024-07-01] MEDS ORDERED: Vancomycin per Pharmacy 1 EA NOTE FOLLOW UP SCH (02:00)
[2024-07-01] MEDS: Vancomycin 1000 MG in NS 0.9% 250 ML IVPB SCH (06:13)
[2024-07-01 06:38] LABS: ABS Basophils 0.1 10^3/uL (0.0-0.1); ABS Eosinophils 0.3 10^3/uL (0.0-0.5); ABS Lymphocytes 2.1 10^3/uL (1.0-4.8); ABS Monocytes 0.7 10^3/uL (0.0-1.1); ABS Neutrophils 5.5 10^3/uL (1.5-7.6); Eosinophil % 3.4 %; Hematocrit 32.8 % (38-53); Hemoglobin 11.2 g/dL (13.2-16.3); Mean Corpuscular Hemoglobin 32.7 pg (27-33); Mean Corpuscular Hgb Conc 34.2 g/dL (31-36); Mean Corpuscular Volume 95.6 fL (80-97); Mean Platelet Volume 8.3 fL (7.5-11.2); Platelet Count 317 10^3/uL (150-450); Red Blood Count 3.43 10^6/uL (4.06-5.63); Red Cell Distribution Width 13.5 % (12-17); White Blood Count 8.7 10^3/uL (3.6-10.2)
[2024-07-01 07:11] LABS: Calcium 8.3 mg/dL (8.6-10.3); Creatinine, Serum 0.41 mg/dL (0.67-1.17); Magnesium 1.8 mg/dL (1.9-2.7); Potassium 4.2 mmol/L (3.5-5.0); eGFR CKD-EPI 113.6 (>60)
[2024-07-01] MEDS: cefTRIAXone 2 gm/50 mL D5W 2 GM/50 ML BAG IV SCH (08:20)
[2024-07-01] MEDS: Magnesium Sulfate 2 gm BAG 2 GM/50 ML BAG IVPB ONE (08:53)
[2024-07-01] MEDS ORDERED: cefTRIAXone 1 gm/50 mL D5W 1 GM/50 ML BAG IV SCH (09:00)
[2024-07-01] MEDS: CMCS: FLUTICAS/UMECLI/VILANT 100-62.5-25 MDI (NF) INH SCH (10:28)
[2024-07-01] MEDS: Fluticasone NASAL SPRAY 50MCG 16 gm SPRAY BTL INTRANASAL SCH (10:29)
[2024-07-01] MEDS: Iohexol 300 (CONTRAST) 10 ML SDV IV ONE (12:29)
[2024-07-01 13:53] VITALS: BP 153/77
[2024-07-01] MEDS ORDERED: Vancomycin Trough Check NOTE FOLLOW UP ONE (17:30)
== END 2024-07-01 17:21 | disposition home or self-care (01) ==
LOC: ED 14:55 → EDHOLD 14:55 → SSU 07-01 06:30
PROVIDERS: ADMIT Student in an Organized Health Care Education/Training Program; ATTEND Internal Medicine